=== PATIENT | male | born 2000 | race Caucasian/White ===

== ENCOUNTER 2024-07-18 06:53 | Emergency (ER) | payer OTHER, SELFPAY ==
--- NOTE | ~2024-07-18 | XR_ITS ---
EXAMINATION: XR chest 2V DATE: 07/18/2024 08:20 INDICATION: Upper respiratory tract infection TECHNIQUE: PA and lateral views of the chest were obtained. COMPARISON: None FINDINGS: The lungs are clear with no focal airspace opacities, pulmonary edema, pleural effusion or pneumothor ax. The cardiomediastinal silhouette is normal. Visualized bones and soft tissues are unremarkable. IMPRESSION: 1. Normal chest radiograph. Reviewed, dictated and finalized at location B. SILVERER IMPRESSION: 1. Normal chest radiograph.
[2024-07-18 08:01] LABS: Influenza A QL RT-PCR Positive (Negative); Influenza B QL RT-PCR Negative (Negative); RSV RNA, RT-PCR Negative (Negative); SARS-CoV-2 RNA PCR Negative (Negative)
--- NOTE | 2024-07-18 10:55 | ED_ITS ---
HPI - URI/Sore Throat General Chief Complaint: Upper Respiratory Infection Stated Complaint: i think i have pna Time Seen by Provider: 07/18/24 10:43 Source: patient Mode of arrival: ambulatory Limitations: no limitations History of Present Illness HPI Narrative: This is a 24-year-old male that presents to the emergency department for cold symptoms ongoing since yesterday. Reports fever, cough, congestion, myalgias. Also reports fatigue. Review of Systems Review of Systems: CONSTITUTIONAL: Reports fever ENT: Reports congestion RESPIRATORY: Reports cough and dyspnea. All systems reviewed & are unremarkable except as noted in HPI and below PMFSH Past Medical History Medical History (Updated 07/18/24 @ 11:00 by La Nena Bartholomew PA-C) No active medical problems Social History Social History (Updated 07/18/24 @ 11:00 by La Nena Bartholomew PA-C) Smoking status: Current every day smoker Exam Narrative: GENERAL: Well-appearing, well-nourished, and in no acute distress. HEAD: Normocephalic, atraumatic. EYES: EOMI. ENT: Nares clear, no rhinorrhea or epistaxis. Mucous membranes moist. Oropharynx without tonsillar hypertrophy exudate or other lesions. NECK: Supple. No adenopathy or masses. CHEST: Clear to auscultation. No respiratory distress. No wheezes rales or rhonchi HEART: Regular rate and rhythm. No murmur heard. Normal peripheral pulses. EXTREMITIES: Normal range of motion. No edema. SKIN: Warm, dry, no rash. NEURO: No focal deficits. Alert and oriented x3. PSYCH: Normal mood and affect Course Course Emergency Course: Patient updated on his workup and agrees with plan of care MDM - URI/Sore Throat [facility] Narrative Medical decision making narrative: Patient presents the emergency department for cold symptoms present since yesterday. Febrile in the ED. Oxygen saturation is normal on room air. Lungs are clear on exam. Patient influenza A positive. Chest x-ray without acute cardiopulmonary abnormality. Patient updated on his workup and agrees with plan of care. Will be prescribed Tamiflu. Instructed on further symptomatic care a viral infection. He is to follow up with primary provider. He was given warnings to return to the ER Differential Diagnosis Differential diagnosis: Likely upper respiratory infection, viral infection, bronchitis and influenza Lab Data Attestation: I reviewed the patient's lab results. Labs: Lab Results 07/18/24 Range/Units 07:09 Influenza A (RT-PCR) Positive A (Negative) Influenza B (RT-PCR) Negative (Negative) RSV (RT-PCR) Negative (Negative) SARS-CoV-2 RNA (RT-PCR) Negative (Negative) Imaging Data Radiologist's impression: ITS Impressions Chest X-Ray 07/18/24 08:23 IMPRESSION: 1. Normal chest radiograph. Critical Care Time Critical Care Time Critical Care Time: No Discharge Plan Discharge Clinical Impression: Influenza A Patient Disposition: Home, Self-Care Condition: Stable Instructions: Influenza (ED) Additional Instructions: Return to the emergency department for worsening symptoms, or any other concerns Remain well-hydrated, get plenty of rest. Take Tylenol or Motrin [id number] for pain as needed. Flonase for nasal congestion. Zyrtec for runny nose. Lozenges or Chloraseptic spray for sore throat. Take Oseltamivir as prescribed Follow up with primary care doctor Patient Language: Setswana Prescriptions: New oseltamivir 75 mg capsule 75 mg PO Q12H 5 Days Qty: 10 0RF Follow-up/Referrals: PHYSICIAN,POWER HOUSE CONTROL ROOM OPERATOR [Primary Care Provider] - Walker Mccollum MD [Physician] - Stand Alone Forms: Work/School Release IP
[2024-07-18 11:02] VITALS: BP 108/66; PULSE 98; RESP 16; TEMP 38.3; O2SAT 100
--- OUTSIDE RECORDS SUMMARY | 2024-07-18 11:07 | XMS_ITS | Referral Summary ---
Author Organization [facility] er Address [address] [place] [address] Care Team Providers Care B And B Gang Worker Name Role Phone No, Physician Primary Care Provider [phone] Encounters Date Type Department Care Team Description 05/20/2024 8:45 AM TAP AND DIE MAKER TECHNICIAN Office Visit [facility] [address] [place] [address] Glory Scherer, BETSEY Dental infection (Primary Dx) from Last 3 Months Allergies No known active allergies Medications cetirizine-pseud oephedrine ER (ZyrTEC-D) 5-120 mg per 12 hr tabletIndication s:rhinorrhea Take 1 tablet by mouth 2 (two) times a day 13 tablet 08/18/2022 Active Active Problems No known active problems Social History Tobacco Use Types Packs/Day Years Used Date Smoking Tobacco: Every Day Personal Safety Answer Date Recorded Getting School Help Needed Denies 06/17 Sex and Gender Information Value Date Recorded Sex Assigned at Not on file Legal Sex Male 7:56 AM CDT Gender Identity Not on file Sexual Orientation Not on file Last Filed Vital Signs Vital Sign Reading Time Taken Comments Blood Pressure 110/70 05/20/2024 8:51 AM TAP AND DIE MAKER TECHNICIAN Pulse 88 05/20/2024 8:51 AM TAP AND DIE MAKER TECHNICIAN Temperature 36.4 ??C (97.5 ??F) 05/20/2024 8:51 AM CS T Respiratory Rate 16 05/20/2024 8:51 AM TAP AND DIE MAKER TECHNICIAN Oxygen Saturation 97% 05/20/2024 8:51 AM TAP AND DIE MAKER TECHNICIAN Inhaled Oxygen Concentration - - Weight 47.7 kg (105 lb 3.2 oz) 05/20/2024 8:51 A M TAP AND DIE MAKER TECHNICIAN Height 165.1 cm (5' 5 ) 05/20/2024 8:51 AM TAP AND DIE MAKER TECHNICIAN Body Mass Index 17.51 05/20/2024 8:51 AM TAP AND DIE MAKER TECHNICIAN Plan of Treatment [place] [address] RAYMUNDO ALLEGIANCE Care Teams B And B Gang Worker Relationship Specialty Start Date End Date No, Physician PCP - General 01/22/19
--- OUTSIDE RECORDS SUMMARY | 2024-07-18 11:07 | XMS_ITS | Clinical Summary ---
Author Organization [facility] Address [address] [facility] [place] [address] Care Team Providers Care Php Mysql Developer Name Role Phone Unavailable Primary Care Provider Unavailabl e Source Comments [facility],non-owned Affiliates and Associated Physician Practices is amultiple site organization consisting of ambulatory clinics and hospital sitesin [place], [place], [place] and [place]. This disclosure is being madepursuant to the Care Everywhere program and may not contain all information available regarding this patient. Last updated 18.[facility] Allergies No known active allergies Medications * Be aware that medications may not be up to date on this document. Alwaysverify current medications with the patient. Medication Sig Dispensed Refills Start Date End Date Status lidocaine (LIDODERM) 5 % patch Apply 1 (one) patch to skin once daily 6 patch 02/17/2021 Active Social History Tobacco Use Types Packs/Day Years Used Date Smoking Tobacco: Every Day Smokeless Tobacco: Never Alcohol Use Standard Drinks/Week Comments Not Currently 0 (1 standard drink = 0.6 oz pur e alcohol) Sex and Gender Information Value Date Recorded Sex Assigned at Not on file Gender Identity Not on file Sexual Orientation Not on file Last Filed Vital Signs Vital Sign Reading Time Taken Comments Blood Pressure 107/59 02/17/2021 12:51 PM CDT Pulse 85 02/17/2021 12:51 PM CDT Temperature 36.9 ??C (98.4 ??F) 02/17/2021 12:51 PM C DT Respiratory Rate 16 02/17/2021 12:51 PM CDT Oxygen Saturation 97% 02/17/2021 12:51 PM CDT Inhaled Oxygen Concentration - - Weight 49.9 kg (110 lb) 02/17/2021 12:51 PM CDT Height 167.6 cm (5' 6 ) 02/17/2021 12:51 PM CDT Body Mass Index 17.75 02/17/2021 12:51 PM CDT Plan of Treatment Health Maintenance Due Date Last Done Comments HIV SCREENING 2014 HPV VACCINE (1 - Male 3-dose series) 2014 HEPATITIS C SCREENING 01/21/2017 DTAP/TDAP/TD VACCINES (1 - Tdap) 2018 HEPATITIS B VACCINE (1 of 3 - 19+ 3-dose series) 2018 PNEUMOCOCCAL VACCINE (1 of 2 - PCV) 2018 COVID-19 VACCINE (1 - 2023-2 5 season) 2024 INFLUENZA VACCINE (#1) 2024 DEPRESSION SCREENING 06/18/2024 ZOSTER VACCINE (1 of 2) 2049 HIB VACCINE Aged Out No longer eligi ble based on patient's age to complete this topic MENINGOCOCCAL (Group B) VACCINE Aged Out No longer eligible based on patient's age to complete this topic MENINGOCOCCAL VACCINE Aged Out No bal nancy eligible based on patient's age to complete this topic Guarantor Name Account Type Relation to Patient Date of Phone Billing Address [id number] [facility] Workers Comp Employer [address] [place] [address] Bruno Gonzalez Third Green [employer] Liability Self 2000 [id number] [place] [address] Bruno Gonzalez Personal/Family Self 2000 [address] [place] [address]
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
--- OUTSIDE RECORDS SUMMARY | 2024-07-18 11:07 | XMS_ITS | Referral Summary ---
Author Organization [facility] Address [address] [place] [address] Care Team Providers Care Costumer Name Role Phone Unavailable Primary Care Provider Unavailabl e Source Comments [facility],non-owned Affiliates and Associated Physician Practices is amultiple site organization consisting of ambulatory clinics and hospital sitesin [place], [place], [place] and [place]. This disclosure is being madepursuant to the Care Everywhere program and may not contain all information available regarding this patient. Last updated 18.[facility] Allergies No known active allergies Medications * [...] 02/17/2021 12:51 PM CDT Plan of Treatment Not on file Guarantor Name Account Type Relation to Patient Date of Phone Billing Address [id number] HEBERT [employer] Employer [address] [place] [address] Bruno Gonzalez Third Green [employer] Liability Self 2000 [address] [place] [address] Bruno Gonzalez Personal/Family Self 2000 [address] [place] [address]
--- OUTSIDE RECORDS SUMMARY | 2024-07-18 11:07 | XMS_ITS | Continuity of Care Document ---
Author Organization [facility] Address [id number] [address] Phone Care Team Providers Care Web Press Jogger Name Role Phone Unavailable Unavailable Unavailable Allergies, Adverse Reactions, Alerts Substance Reaction Status Criticality No Known Allergies Active No Inform ation Medications Medication Instructions Dosage Effective Dates (start - stop) Status Comments Flovent HFA 44 mcg/actuation Aerosol Inhaler inhale 2 puff (88MCG) by inhalation route 2 times every day - Active Flonase 50 mcg/actuation Nasal [place] spray 1 spray by intranasal route every day in each nostril - Active albuterol sulfate 2.5 mg/3 mL (0.083 %) Neb Solution inhale 3 milliliter (2.5MG) by nebulization route 3 times every day 2.5 MG - Active Singulair 5 mg Chewable Tab chew 1 Tablet (5MG) by ORAL route every day in the evening for allergies 5 MG - Active albuterol sulfate HFA 90 mcg/actuation Aerosol Inhaler inhale 2 puff by inhalation route every 4 - 6 hours as needed - Active Flovent HFA 44 mcg/actuation Aerosol Inhaler inhale 2 puff (88MCG) by inhalation route 2 times every day - No Longer Active Flonase 50 mcg/actuation Nasal [place] spray 1 spray by intranasal route every day in each nostril - No Longer Active Procedures Procedure Date STREP A ASSAY W/OPTIC OFFICE/OUTPATIENT VISIT, EST FLU VACCINE, 3 YRS & >, IM Amalgam ??? One Surface, Primary Or Perm anent EDR Approval Note Bitewings ??? Two Films Topical Fluoride Varnish; Therapeutic Ap plication Prophylaxis ??? Adult Periodic Oral Evaluation ??? Established Patient EDR Approval Note OFFICE/OUTPATIENT VISIT, EST Amalgam ??? Two Surfaces, Primary Or Per manent Amalgam ??? One Surface, Primary Or Perm anent EDR Approval Note Amalgam ??? Two Surfaces, Primary Or Per manent EDR Approval Note Periodic Oral Evaluation ??? Established Patient Bitewings ??? Two Films Topical Fluoride Varnish; Therapeutic Ap plication Prophylaxis ??? Child EDR Approval Note Amalgam ??? One Surface, Primary Or Perm anent EDR Approval Note Periodic Oral Evaluation ??? Established Patient Bitewings ??? Two Films Prophylaxis ??? Child Topical Fluoride Varnish; Therapeutic Ap plication Advance Directives Directive Yes / No Effective Date File Name No Information Encounters Encounter Description Practice Location Reason(s) For Visit Diagnoses Date Provider Providers Copied on Encounter [facility], [id number]- [facility], [place], [place], [id number], [place] tel:[phone] Family Medicine F1 No Information 2 No Information [facility], [id number]- [facility], [facility] [place], [id number], [place] tel:[phone] Family Medicine F1 Acute pharyngitis 2 No Information OFFICE/OUTPA TIENT VISIT, EST [facility], [id number]- [facility], [place], [place], [id number], [place] tel:[phone] Family Medicine F1 shortness of breath (chief complaint) fever (chief complaint) swollen glands (chief complaint) Pharyngitis, AcuteAsthmaInflue nza Vaccine 2 No Information [facility], [id number]- [facility], [place], [place], [id number], [place] tel:[phone] [facility] Dental examination 2 No Information [facility], [id number]- [facility], [place], [place], [address], [place] tel:[phone] [facility] Dental examination 2 No Information OFFICE/OUTPA TIENT VISIT, [facility], [id number] [place] [place], [id number], [place] tel:[phone] Family Medicine F1 asthma (chief complaint) AsthmaAllergic rhinitis, cause unspecified 2 No Information [facility], [id number]- [facility], [place], [place], [address], [place] tel:[phone] [facility] Dental examination 2 No Information [facility], [id number]- [facility], [place], [place], [address], [place] tel:[phone] [facility] Dental examination 2 No Information [facility], [id number] [facility] [place], [address], [place] tel:[phone] [facility] Dental examination 1 No Information [facility], [id number]- [facility], [place], [place], [address], [place] tel:[phone] [facility] Dental examination 8201 0 No Information [facility], [id number]- [facility], [place], [place], [address], [place] tel:[phone] [facility] Dental examination Feb-3 0201 0 No Information Family History Family Member Type Diagnosis Age At Onset Mother Problem (finding) migraine Grandparents Problem (finding) hypertension Mother Problem (finding) Allergies Grandparents Problem (finding) raised blood lipids Grandparents Problem (finding) malignant neoplasm of o vary Immunizations Vaccine Date Status Comments Flu (split) (3 yrs or older) administered Note: [facility]# [id number] ; Source: New Immunization Record MMR administered Source: New Imm unization Record DTaP administered Source: New Imm unization Record varicella administered Source: New Imm unization Record MMR administered Source: New Imm unization Record HIB - unspecified administered Source: Ne w Immunization Record hep B (ped/adol, 3 dose) administered Monica rce: New Immunization Record DTaP administered Source: New Imm unization Record HIB - unspecified administered Source: Ne w Immunization Record hep B (ped/adol, 3 dose) administered Monica rce: New Immunization Record HIB - unspecified administered Source: Ne w Immunization Record hep B (ped/adol, 3 dose) administered Monica rce: New Immunization Record DTaP administered Source: New Imm unization Record DTaP administered Source: New Imm unization Record HIB - unspecified administered Source: Ne w Immunization Record DTaP administered Source: New Imm unization Record Payers Payer name Insurance type Covered republican ID Hannah conroy(cesar) Ghulam [place] Medicaid MC [id number] Social History Type Description Quantity Date Captured Comments Sex Male Smoking Status No Information Chief Complaint And Reason For Visit No Information Reason For Referral Reason For Referral No Information History Of Present Illness Encounter Date Complaint History Of Prese nt Illness No Information Functional Status Date Functional Assessmen t No Information Instructions Date Instruction Additional Infor mation No Information Assessments Type Assessment Date No Information Patient Care Teams Name Effective Dates (start - stop) Status Members No Information
--- OUTSIDE RECORDS SUMMARY | 2024-07-18 11:07 | XMS_ITS | Clinical Summary ---
Author Organization [facility] er Address [address] [place] [address] Care Team Providers Care Sales Engineering Manager Name Role Phone No, Physician Primary Care Provider [phone] Allergies No known active allergies Medications cetirizine-pseud oephedrine ER (ZyrTEC-D) 5-120 mg per 12 hr tabletIndication s:rhinorrhea Take 1 tablet by mouth 2 (two) times a day 13 tablet 08/18/2022 Active Active Problems No known active problems Encounters Date Type Department Care Team Description 05/20/2024 8:45 AM ELIGIBILITY MANAGER Office Visit [facility] [place] [address] [place] [address] Glory Scherer NP Dental infection (Primary Dx) from Last 3 Months Surgical History Surgery Date Site/Laterality Comments INGUINAL HERNIA REPAIR Social History Tobacco Use Types Packs/Day Years Used Date Smoking Tobacco: Every Day Personal Safety Answer Date Recorded Getting School Help Needed Denies 06/17 Sex and Gender Information Value Date Recorded Sex Assigned at Not on file Legal Sex Male 7:56 AM CDT Gender Identity Not on file Sexual Orientation Not on file Obstetrics History Last Filed Vital Signs Vital Sign Reading Time Taken Comments Blood Pressure 110/70 05/20/2024 8:51 AM ELIGIBILITY MANAGER Pulse 88 05/20/2024 8:51 AM ELIGIBILITY MANAGER Temperature 36.4 ??C (97.5 ??F) 05/20/2024 8:51 AM CS T Respiratory Rate 16 05/20/2024 8:51 AM ELIGIBILITY MANAGER Oxygen Saturation 97% 05/20/2024 8:51 AM ELIGIBILITY MANAGER Inhaled Oxygen Concentration - - Weight 47.7 kg (105 lb 3.2 oz) 05/20/2024 8:51 A M ELIGIBILITY MANAGER Height 165.1 cm (5' 5 ) 05/20/2024 8:51 AM ELIGIBILITY MANAGER Body Mass Index 17.51 05/20/2024 8:51 AM ELIGIBILITY MANAGER Plan of Treatment Health Maintenance Due Date Last Done Comments Depression Screening 1999 Hepatitis C Screening 2000 Pneumococcal vaccine <65 (1 of 2 - PCV) 2005 HPV Vaccines (3 - Male 2-dos e series) 07/10/2013 03/11/2013, 01/07/2013 Regular Well Visit/Exam 18-64 2017 DTaP/Tdap/Td Vaccine (7 - Td or Tdap) 01/07/2023 01/07/2013, 02/08/2004, 03/13/2000, Additional history exists Influenza Vaccine (#1) 2024 3, 03/28/2012, 04/27/2010 Varicella Vaccines Completed 01/07/2013, 06/25/2001 [place] [address] RAYMUNDO ALLEGIANCE Care Teams Sales Engineering Manager Relationship Specialty Start Date End Date No, Physician PCP - General 01/22/19
[2024-07-18] MEDS: ACETAMINOPHEN 500 MG TABLET 1000 MG PO (11:09)
== END 2024-07-18 11:15 | disposition home or self-care (01) ==
LOC: ANHED 11:04
PROVIDERS: Student in an Organized Health Care Education/Training Program; Emergency Provider Physician Assistant
DX: J10.1 Influenza due to other identified influenza virus with other respiratory manifestations (principal); Z20.822 Contact with and (suspected) exposure to COVID-19; F17.200 Nicotine dependence, unspecified, uncomplicated
CPT/HCPCS: 71046; 87637; 99283; A9270

== ENCOUNTER 2024-12-16 06:57 | Emergency (ER) | payer OTHER, SELFPAY ==
--- OUTSIDE RECORDS SUMMARY | 2024-12-16 07:00 | XMS_ITS | Referral Summary ---
Author Organization [facility] er Address [address] [place] [address] Care Team Providers Care Ceramic Tile Setter Name Role Phone No, Physician Primary Care Provider [phone] Encounters Date Type Department Care Team Description 09/19/2024 Telephone [facility] [address] [facility] [place] [address] Katherin Moralez NP from Last 3 Months Allergies No known [...] Comments Blood Pressure 110/70 05/20/2024 8:51 AM AOC AADC OPERATIONS STAFF OFFICER Pulse 88 05/20/2024 8:51 AM AOC AADC OPERATIONS STAFF OFFICER Temperature 36.4 C (97.5 F) 05/20/2024 8:51 AM AOC AADC OPERATIONS STAFF OFFICER Respiratory Rate 16 05/20/2024 8:51 AM AOC AADC OPERATIONS STAFF OFFICER Oxygen Saturation 97% 05/20/2024 8:51 AM AOC AADC OPERATIONS STAFF OFFICER Inhaled Oxygen Concentration - - Weight 47.7 kg (105 lb 3.2 oz) 05/20/2024 8:51 A M AOC AADC OPERATIONS STAFF OFFICER Height 165.1 cm (5' 5) 05/20/2024 8:51 AM AOC AADC OPERATIONS STAFF OFFICER Body Mass Index 17.51 05/20/2024 8:51 AM AOC AADC OPERATIONS STAFF OFFICER Plan of Treatment Not on file [facility] Care Teams Ceramic Tile Setter Relationship Specialty Start Date End Date No, Physician PCP - General 01/22/19
--- OUTSIDE RECORDS SUMMARY | 2024-12-16 07:00 | XMS_ITS | Clinical Summary ---
Author Organization [facility] er Address [address] [place] [address] Care Team Providers Care Advertising Solicitor Name Role Phone No, Physician Primary Care Provider [phone] Allergies No known active allergies Medications cetirizine-pseud oephedrine ER (ZyrTEC-D) 5-120 mg per 12 hr tabletIndication s:rhinorrhea Take 1 tablet by mouth 2 (two) times a day 13 tablet 08/18/2022 Active Active Problems No known active problems Encounters Date Type Department Care Team Description 09/19/2024 Telephone [facility] [address] [facility] [place] [address] Katherin Moralez NP from Last 3 Months Surgical History Surgery [...] Comments Blood Pressure 110/70 05/20/2024 8:51 AM DIGITAL STRATEGY MANAGER Pulse 88 05/20/2024 8:51 AM DIGITAL STRATEGY MANAGER Temperature 36.4 C (97.5 F) 05/20/2024 8:51 AM DIGITAL STRATEGY MANAGER Respiratory Rate 16 05/20/2024 8:51 AM DIGITAL STRATEGY MANAGER Oxygen Saturation 97% 05/20/2024 8:51 AM DIGITAL STRATEGY MANAGER Inhaled Oxygen Concentration - - Weight 47.7 kg (105 lb 3.2 oz) 05/20/2024 8:51 A M DIGITAL STRATEGY MANAGER Height 165.1 cm (5' 5) 05/20/2024 8:51 AM DIGITAL STRATEGY MANAGER Body Mass Index 17.51 05/20/2024 8:51 AM DIGITAL STRATEGY MANAGER Plan of Treatment Health Maintenance Due Date Last Done Comments Depression Screening 1999 Hepatitis C Screening 1999 HPV Vaccines (3 - Male 2-dos e series) 07/10/2013 03/11/2013, 01/07/2013 Regular Well Visit/Exam 18-64 2017 Pneumococcal vaccine <65 (1 of 2 - PCV) 2018 DTaP/Tdap/Td Vaccine (7 - Td or Tdap) 01/07/2023 01/07/2013, 02/08/2004, 03/13/2000, Additional history exists Influenza Vaccine (Season Ended) 2025 03/11/2013, 03/28/2012, 04/27/2010 Hepatitis B Screening Completed 03/13/2000 , 01/05/2000, 1999 Varicella Vaccines Completed 01/07/2013, 06/25/2001 [place] [address] [employer] Care Teams Advertising Solicitor Relationship Specialty Start Date End Date No, Physician PCP - General 01/22/19
--- OUTSIDE RECORDS SUMMARY | 2024-12-16 07:00 | XMS_ITS | Clinical Summary ---
Author Organization [facility] Address [address] [place] [address] Care Team Providers Care Nurses Educator Name Role Phone Unavailable Primary Care Provider Unavailabl e Source Comments [facility],non-owned Affiliates and Associated Physician Practices is amultiple site organization consisting of ambulatory clinics and hospital sitesin [place], [place], [place] and [place]. This disclosure is being madepursuant to the Care Everywhere program and may not contain all information available regarding this patient. Last updated 18.[facility] Allergies No known active allergies Medications * Be aware that medications may not be up to date on this document. Alwaysverify current medications with the patient. lidocaine (LIDODERM) 5 % patch Apply 1 [...] at Not on file Legal Sex Male 12:44 AM CDT Gender Identity Not on file Sexual Orientation Not on file Last Filed Vital Signs Vital Sign Reading Time Taken Comments Blood Pressure 107/59 02/17/2021 12:51 PM CDT Pulse 85 02/17/2021 12:51 PM CDT Temperature 36.9 C (98.4 F) 02/17/2021 12:51 PM CDT Respiratory Rate 16 02/17/2021 12:51 PM CDT Oxygen Saturation 97% 02/17/2021 12:51 PM CDT Inhaled Oxygen Concentration - - Weight 49.9 kg (110 lb) 02/17/2021 12:51 PM CDT Height 167.6 cm (5' 6) 02/17/2021 12:51 PM CDT Body Mass Index 17.75 02/17/2021 12:51 PM CDT Plan of Treatment Health Maintenance Due Date Last Done Comments HIV SCREENING 2014 HPV VACCINE (1 - Male 3-dose series) 2014 HEPATITIS C SCREENING 01/21/2017 DTAP/TDAP/TD VACCINES (1 - Tdap) 2018 HEPATITIS B VACCINE (1 of 3 - 19+ 3-dose series) 2018 COVID-19 VACCINE (1 - 2023-2 5 season) 2024 DEPRESSION SCREENING 06/18/2024 INFLUENZA VACCINE (Season Ended) 2025 ZOSTER VACCINE (1 of 2) 2049 HIB VACCINE Aged Out No longer eligi ble based on patient's age to complete this topic MENINGOCOCCAL (Group B) VACC INE SHARED DECISION-MAKING Aged Out No longer eligibl e based on patient's age to complete this topic MENINGOCOCCAL GROUPS A/C/Y/W VACCINE Aged Out No longer eligible b ased on patient's age to complete this topic PNEUMOCOCCAL VACCINE Aged Out No long er eligible based on patient's age to complete this topic Insurance [employer] THIRD REPUBLICAN LIABILITY
--- OUTSIDE RECORDS SUMMARY | 2024-12-16 07:00 | XMS_ITS | Continuity of Care Document ---
Author Organization [facility] Address [id number] [address] Phone Care Team Providers Care Education Counselor Name Role Phone Unavailable Unavailable Unavailable Allergies, Adverse Reactions, Alerts Substance Reaction Status Criticality No Known Allergies Active No Inform ation Medications Medication Instructions Dosage Effective Dates (start - stop) Status Comments Flovent HFA 44 mcg/actuation Aerosol Inhaler inhale 2 puff (88MCG) by inhalation route 2 times every day - Active Flonase 50 mcg/actuation Nasal [place] spray 1 spray by intranasal route every [...] No Longer Active Flonase 50 mcg/actuation Nasal [place] spray 1 spray by intranasal route every day in each nostril - No Longer Active Procedures Procedure Date STREP A ASSAY W/OPTIC OFFICE/OUTPATIENT VISIT, EST FLU VACCINE, 3 YRS & >, IM Amalgam One Surface, Primary Or Permanent EDR Approval Note Bitewings Two Films Topical Fluoride Varnish; Therapeutic Ap plication Prophylaxis Adult Periodic Oral Evaluation Established Patient EDR Approval Note OFFICE/OUTPATIENT VISIT, EST Amalgam Two Surfaces, Primary Or Permanent Amalgam One Surface, Primary Or Permanent EDR Approval Note Amalgam Two Surfaces, Primary Or Permanent EDR Approval Note Periodic Oral Evaluation Established Patient Bitewings Two Films Topical Fluoride Varnish; Therapeutic Ap plication Prophylaxis Child EDR Approval Note Amalgam One Surface, Primary Or Permanent EDR Approval Note Periodic Oral Evaluation Established Patient Bitewings Two Films Prophylaxis Child Topical Fluoride Varnish; Therapeutic Ap plication Advance Directives Directive Yes / No Effective Date File Name No Information Encounters Encounter Description Practice Location Reason(s) For Visit Diagnoses Date Provider Providers Copied on Encounter [facility], [id number]- [facility], [place], [id number], [place] tel:[phone] Family Medicine F1 No Information 2 No Information [facility], [id number]- [facility], [place], [id number], [place] tel:[phone] Family Medicine F1 Acute pharyngitis 0 2 No Information OFFICE/OUTPA TIENT VISIT, EST [facility], [id number]- [facility], [place], [id number], [place] tel:[phone] Family Medicine F1 shortness of breath (chief complaint) fever (chief complaint) swollen glands (chief complaint) Pharyngitis, AcuteAsthmaInflue nza Vaccine 2 No Information [facility], [id number]- [facility], [place], [place], [id number], [place] tel:[phone] [facility] Dental examination 2 No Information [facility], [id number]- [facility], [place], [place], [id number], [place] tel:[phone] [facility] Dental examination 2 No Information OFFICE/OUTPA TIENT VISIT, [facility], [id number]- [facility], [place], [place], [id number], [place] tel:[phone] Family Medicine F1 asthma (chief complaint) AsthmaAllergic rhinitis, cause unspecified 2 No Information [facility], [id number]- [facility], [place], [place], [address], [place] tel:[phone] [facility] Dental examination 2 No Information [facility], [id number]- [facility], [place], [id number], [place] tel:[phone] [facility] Dental examination 2 No Information [facility], [id number]- [facility], [place], [place], [id number], [place] tel:[phone] [facility] Dental examination 1 No Information [facility], [id number]- [facility], [place], [place], [id number], [place] tel:[phone] [facility] Dental examination Dec-0 8-201 0 No Information [facility], [id number]- [facility], [place], [id number], [place] tel:[phone] [facility] Dental examination Sep-3 0-201 0 No Information Family History Family Member Type Diagnosis Age At Onset Mother Problem (finding) migraine Grandparents Problem (finding) hypertension Mother Problem (finding) Allergies Grandparents Problem (finding) raised blood lipids Grandparents Problem (finding) malignant neoplasm of o vary Immunizations Vaccine Date Status Comments Flu (split) (3 yrs or older) administered Note: [facility]# [id number] ; Source: New Immunization Record MMR administered [...] Record Payers Payer name Insurance type Covered libertarian ID Hannah conroy(cesar) Ghulam [place] Medicaid [place] [id number] Social History Type Description Quantity Date Captured [...]
[2024-12-16 07:22] VITALS: BP 105/73; PULSE 69; RESP 17; TEMP 36.8; O2SAT 98
--- NOTE | 2024-12-16 07:35 | ED.DENTAL ---
HPI - Dental/Oral General Chief complaint: Dental/Oral Stated complaint: dental infection, swollen face Time Seen by Provider: 12/16/24 07:21 Related Data Allergies Allergy/AdvReac Type Severity Reaction Status Date / Time No Known Allergies Allergy Verified 12/16/24 07:11 [facility] Past Medical History Medical History (Updated 12/16/24 @ 07:36 by Boni Ca MD) No active medical problems Social History Social History (Updated 07/18/24 @ 11:00 by La Nena Bartholomew PA-C) Smoking status: Current every day smoker Course Vital Signs Vital signs: Vital Signs Temperature 98.3 F 12/16/24 07:22 Pulse Rate 69 12/16/24 07:22 Respiratory Rate 17 12/16/24 07:22 Blood Pressure 105/73 12/16/24 07:22 Pulse Oximetry 98 12/16/24 07:22 Oxygen Delivery Room Air 12/16/24 07:22 Temperature 98.3 F 12/16/24 07:22 Pulse Rate 69 12/16/24 07:22 Respiratory Rate 17 12/16/24 07:22 Blood Pressure 105/73 12/16/24 07:22 Pulse Oximetry 98 12/16/24 07:22 Oxygen Delivery Room Air 12/16/24 07:22 Discharge Plan Discharge Clinical Impression: Dental abscess Patient Disposition: Home Condition: Stable Instructions: Antibiotic Form, Toothache (ED) Additional Instructions: Return to the ER if you have worsening pain, you cannot breathe, you cannot swallow, or you have additional concerns. Patient Language: Ukrainian Prescriptions: New hydrocodone-acetaminophen 5-325 mg tablet 1 tablet PO Q6H PRN (Reason: pain) Qty: 10 0RF amoxicillin-pot clavulanate 875-125 mg tablet 1 tablet PO Q12H Qty: 14 0RF No Action oseltamivir 75 mg capsule 75 mg PO Q12H 5 Days Qty: 10 0RF Follow-up/Referrals: Dental Referral Line [Outside] - 1 Week UNKNOWN,DOCTOR [Primary Care Provider] -
--- OUTSIDE RECORDS SUMMARY | 2024-12-16 07:54 | XMS_ITS | Referral Summary ---
Author Organization [facility] er Address [address] [place] [address] Care Team Providers Care Analytical Chemist Name Role Phone No, Physician Primary Care Provider [phone] Encounters Date Type Department Care Team Description 09/19/2024 Telephone [facility] [address] [facility] [place] [address] Katherin Moralez NP from Last [...] Comments Blood Pressure 110/70 05/20/2024 8:51 AM MERCERIZER MACHINE OPERATOR Pulse 88 05/20/2024 8:51 AM MERCERIZER MACHINE OPERATOR Temperature 36.4 C (97.5 F) 05/20/2024 8:51 AM MERCERIZER MACHINE OPERATOR Respiratory Rate 16 05/20/2024 8:51 AM MERCERIZER MACHINE OPERATOR Oxygen Saturation 97% 05/20/2024 8:51 AM MERCERIZER MACHINE OPERATOR Inhaled Oxygen Concentration - - Weight 47.7 kg (105 lb 3.2 oz) 05/20/2024 8:51 A M MERCERIZER MACHINE OPERATOR Height 165.1 cm (5' 5) 05/20/2024 8:51 AM MERCERIZER MACHINE OPERATOR Body Mass Index 17.51 05/20/2024 8:51 AM MERCERIZER MACHINE OPERATOR Plan of Treatment Not on file [facility] Care Teams Analytical Chemist Relationship Specialty Start Date End Date No, Physician PCP - General 01/22/19
--- OUTSIDE RECORDS SUMMARY | 2024-12-16 07:54 | XMS_ITS | Clinical Summary ---
Author Organization [facility] er Address [address] [place] [address] Care Team Providers Care Terrazzo Helper Name Role Phone No, Physician Primary Care Provider [phone] Allergies No known active allergies Medications cetirizine-pseud oephedrine ER (ZyrTEC-D) 5-120 mg per 12 hr tabletIndication s:rhinorrhea Take 1 tablet by mouth 2 (two) times a day 13 tablet 08/18/2022 Active Active Problems No known active problems Encounters Date Type Department Care Team Description 09/19/2024 Telephone [facility] [address] [facility] [place] [address] Katherin Moralez NP from Last [...] Comments Blood Pressure 110/70 05/20/2024 8:51 AM MUSIC ARTIST Pulse 88 05/20/2024 8:51 AM MUSIC ARTIST Temperature 36.4 C (97.5 F) 05/20/2024 8:51 AM MUSIC ARTIST Respiratory Rate 16 05/20/2024 8:51 AM MUSIC ARTIST Oxygen Saturation 97% 05/20/2024 8:51 AM MUSIC ARTIST Inhaled Oxygen Concentration - - Weight 47.7 kg (105 lb 3.2 oz) 05/20/2024 8:51 A M MUSIC ARTIST Height 165.1 cm (5' 5) 05/20/2024 8:51 AM MUSIC ARTIST Body Mass Index 17.51 05/20/2024 8:51 AM MUSIC ARTIST Plan of Treatment Health Maintenance Due Date [...] Varicella Vaccines Completed 01/07/2013, 06/25/2001 [place] [address] [employer]AYM[employer] Care Teams Terrazzo Helper Relationship Specialty Start Date End Date No, Physician PCP - General 01/22/19
--- OUTSIDE RECORDS SUMMARY | 2024-12-16 07:54 | XMS_ITS | Clinical Summary ---
Author Organization [facility] Address [address] [place] [address] Care Team Providers Care Automatic Lehr Operator Name Role Phone Unavailable Primary Care Provider Unavailabl e Source Comments [facility],non-owned Affiliates and Associated Physician Practices is amultiple site organization consisting of ambulatory clinics and hospital sitesin [place], [place], [place] and [place]. This disclosure is being madepursuant to the Care Everywhere program and may not contain all information available regarding this patient. Last updated 18.[facility] Allergies No known active allergies Medications * [...] this topic Insurance [employer]YOR [employer] T[employer] THIRD ALLIANCE PARTY LIABILITY
--- OUTSIDE RECORDS SUMMARY | 2024-12-16 07:54 | XMS_ITS | Continuity of Care Document ---
Author Organization [facility] Address [id number] [address] Phone Care Team Providers Care Applied Computer Science Professor Name Role Phone Unavailable Unavailable Unavailable Allergies, Adverse Reactions, Alerts Substance Reaction Status Criticality No Known Allergies Active No Inform ation Medications Medication Instructions Dosage Effective Dates (start - stop) Status Comments Flovent HFA 44 mcg/actuation Aerosol Inhaler inhale 2 puff (88MCG) by inhalation route 2 times every day - Active Flonase 50 mcg/actuation Nasal [place] spray 1 spray by intranasal route every [...] No Longer Active Flonase 50 mcg/actuation Nasal [place] spray 1 spray by intranasal route every [...] Diagnoses Date Provider Providers Copied on Encounter [facility], [id number]- [facility], [place], [id number], [place] tel:[phone] Family Medicine F1 No Information 2 No Information [facility], [id number]- [facility], [place], [id number], [place] tel:[phone] Family Medicine F1 Acute pharyngitis 0 2 No Information OFFICE/OUTPA TIENT VISIT, EST [facility], [id number]- [facility], [place], [id number], [place] tel:[phone] Family Medicine F1 shortness of breath (chief complaint) fever (chief complaint) swollen glands (chief complaint) Pharyngitis, AcuteAsthmaInflue nza Vaccine 2 No Information [facility], [id number]- [facility], [place], [place], [id number], [place] tel:[phone] [facility] Dental examination 2 No Information [facility], [id number]- [facility], [place], [place], [id number], [place] tel:[phone] [facility] Dental examination 2 No Information OFFICE/OUTPA TIENT VISIT, [facility], [id number]- [facility], [place], [place], [id number], [place] tel:[phone] Family Medicine F1 asthma (chief complaint) AsthmaAllergic rhinitis, cause unspecified 2 No Information [facility], [id number]- [facility], [place], [place], [id number], [place] tel:[phone] [facility] Dental examination 2 No Information [facility], [id number]- [facility], [place], [place], [id number], [place] tel:[phone] [facility] Dental examination 2 No Information [facility], [id number]- [facility], [place], [place], [id number], [place] tel:[phone] [facility] Dental examination 1 No Information [facility], [id number]- [facility], [place], [place], [id number], [place] tel:[phone] [facility] Dental examination Dec-0 8-201 0 No Information [facility], [id number]- [facility], [place], [id number], [place] tel:[phone] [facility] Dental examination Sep-3 0-201 0 No Information Family History Family Member Type Diagnosis Age At Onset Mother Problem (finding) migraine Grandparents Problem (finding) hypertension Mother Problem (finding) Allergies Grandparents Problem (finding) raised blood lipids Grandparents Problem (finding) malignant neoplasm of o vary Immunizations Vaccine Date Status Comments Flu (split) (3 yrs or older) administered Note: [facility]# [id number] ; Source: New Immunization Record MMR administered [...] Record Payers Payer name Insurance type Covered alliance party ID Hannah conroy(cesar) Ghulam [place] Medicaid [place] [id number] Social History Type Description Quantity Date Captured [...]
== END 2024-12-16 08:12 | disposition home or self-care (01) ==
PROVIDERS: Emergency Provider Emergency Medicine
DX: K04.7 Periapical abscess without sinus (principal); F17.200 Nicotine dependence, unspecified, uncomplicated
CPT/HCPCS: 99283